=== PATIENT | female | born 1950 | race Asian ===

== ENCOUNTER 2020-11-27 16:58 | Outpatient (CLI) | payer OTHER ==
[2020-11-27 18:01] LABS: POTASSIUM 4.1 mmol/L (3.6-5.2)
== END 2020-11-27 20:11 | disposition home or self-care (01) ==
LOC: LAB 16:58
PROVIDERS: ATTEND Nurse Practitioner Family
DX: I10 Essential (primary) hypertension (principal); E11.9 Type 2 diabetes mellitus without complications; F41.8 Other specified anxiety disorders; F32.9 Major depressive disorder, single episode, unspecified; E55.9 Vitamin D deficiency, unspecified
CPT/HCPCS: 80053; 82306; 83036